=== PATIENT | male | born 1945 | race Caucasian/White ===

== ENCOUNTER 2020-06-27 14:02 | Observation (INO) ==
[2020-06-27] MEDS ORDERED: 0.9 % Sodium Chloride 1,000 ML IVC ONE (14:07)
[2020-06-27 15:34] LABS: Basophils % 0.2 %; Eosinophils # 0.1 K/mcL (0.0-0.6); Eosinophils % 0.7 %; Hematocrit 30.9 % (37.5-50.1); Hemoglobin 9.9 g/dL (12.9-16.9); Immature Granulocytes % 0.5 % (0-4); Lymphocytes # 1.3 K/mcL (0.6-4.6); Lymphocytes % 10.9 %; Mean Corpuscular Hemoglobin 30.4 pg (28.0-33.3); Mean Corpuscular Volume 94.8 fL (83.0-100.0); Mean Platelet Volume 10.5 fL (9.4-12.4); Monocytes % 7.7 %; Neutrophils # 9.8 K/mcL (1.6-8.9); Platelet Count 331 K/mcL (140-400); Red Blood Count 3.26 M/mcL (4.19-5.50); Red Cell Distribution Width 15.2 % (11.5-14.5); White Blood Count 12.3 K/mcL (4.3-11.1)
[2020-06-27 15:35] LABS: INR 1.6; Prothrombin Time 17.9 Seconds (9.4-12.1)
[2020-06-27 15:37] LABS: Activated Partial Thrombo Time 37.5 Seconds (26.0-36.0)
[2020-06-27 15:51] LABS: BUN/Creatinine Ratio 32 (6-26); Blood Urea Nitrogen 110 mg/dL (8-23); Calcium 9.9 mg/dL (8.6-10.3); Carbon Dioxide 15 mEq/L (23-29); Chloride 110 mEq/L (98-107); Glucose 158 mg/dL (70-105); Osmolality,Calculated 316 (280-300); Potassium 5.3 mEq/L (3.5-5.1); Sodium 134 mEq/L (136-145); Troponin I < 0.03 ng/mL (< 0.04); eGFR For African Americans 21 (> 60); eGFR For Non-African Americans 17 (> 60)
[2020-06-27] MEDS ORDERED: *HR* LORazepam 2 MG/ML VIAL IVP ONE (16:17)
[2020-06-27] MEDS ORDERED: Pantoprazole 40 MG VIAL IVP ONE (16:24)
[2020-06-27] MEDS ORDERED: D5% in Water 1,000 ML IVC PRN (18:15)
[2020-06-27] MEDS ORDERED: Dextrose Gel 15 GM/37.5 ML TUBE PO PRN ×2 (18:15)
[2020-06-27] MEDS ORDERED: *HR* Dextrose 50 % in Water (Vial) 50 ML VIAL IVP PRN (18:15)
[2020-06-27] MEDS ORDERED: Nitroglycerin 0.4 MG TAB.SUBL SL PRN (18:16)
[2020-06-27] MEDS ORDERED: Naloxone 0.4 MG/ML INJ IVP PRN (18:18)
[2020-06-27] MEDS ORDERED: Ondansetron 4 MG/2 ML VIAL IVP PRN (18:18)
[2020-06-27] MEDS: Insulin LISPRO 300 UNITS/3 ML VIAL SQ SCH (20:16)
[2020-06-27] MEDS: Pantoprazole 40 MG VIAL IVP SCH (20:31)
[2020-06-27] MEDS: 0.9 % Sodium Chloride 1,000 ML IVC SCH (20:31)
[2020-06-27 21:27] LABS: Hematocrit 28.1 % (37.5-50.1); Hemoglobin 8.9 g/dL (12.9-16.9)
[2020-06-27] MEDS: Budesonide/Formoterol 160/4.5 1 PUFF INH IH SCH (21:30)
[2020-06-27] MEDS: Ipratropium/Albuterol Neb 3 ML IH SCH (21:31)
[2020-06-27] MEDS ORDERED: Acetaminophen 325 MG TABLET PO ONE (22:03)
[2020-06-28] MEDS: Ipratropium/Albuterol Neb 3 ML IH SCH ×4 (03:25→21:53)
[2020-06-28 04:30] LABS: Basophils % 0.4 %; Eosinophils # 0.1 K/mcL (0.0-0.6); Hematocrit 29.1 % (37.5-50.1); Hemoglobin 9.4 g/dL (12.9-16.9); Immature Granulocytes % 0.4 % (0-4); Lymphocytes # 1.4 K/mcL (0.6-4.6); Lymphocytes % 19.6 %; Mean Corpuscular HGB Conc 32.3 g/dL (31.6-35.5); Mean Platelet Volume 10.2 fL (9.4-12.4); Monocytes # 0.8 K/mcL (0.0-1.3); Monocytes % 10.7 %; Neutrophils # 4.7 K/mcL (1.6-8.9); Platelet Count 255 K/mcL (140-400); Red Blood Count 3.03 M/mcL (4.19-5.50); Red Cell Distribution Width 15.2 % (11.5-14.5); Segmented Neutrophils % 66.9 %
[2020-06-28 04:49] LABS: Calcium 9.3 mg/dL (8.6-10.3); Potassium 4.3 mEq/L (3.5-5.1)
[2020-06-28] MEDS: 0.9 % Sodium Chloride 1,000 ML IVC SCH ×2 (05:09→18:25)
[2020-06-28] MEDS: Pantoprazole 40 MG VIAL IVP SCH ×2 (08:13→21:02)
[2020-06-28] MEDS: Insulin LISPRO 300 UNITS/3 ML VIAL SQ SCH ×4 (08:13→21:12)
[2020-06-28] MEDS: Budesonide/Formoterol 160/4.5 1 PUFF INH IH SCH ×2 (09:44→21:56)
[2020-06-28] MEDS ORDERED: Acetaminophen 325 MG TABLET PO PRN (12:04)
[2020-06-28 14:36] LABS: Hematocrit 28.3 % (37.5-50.1)
[2020-06-28] MEDS: PARoxetine 30 MG TABLET PO SCH (21:03)
[2020-06-29] MEDS: Ipratropium/Albuterol Neb 3 ML IH SCH ×4 (04:08→21:31)
[2020-06-29] MEDS: 0.9 % Sodium Chloride 1,000 ML IVC SCH ×2 (04:36→15:37)
[2020-06-29 07:48] LABS: Basophils % 0.5 %; Eosinophils # 0.1 K/mcL (0.0-0.6); Eosinophils % 1.5 %; Hematocrit 29.3 % (37.5-50.1); Hemoglobin 9.3 g/dL (12.9-16.9); Immature Granulocytes % 0.7 % (0-4); Lymphocytes # 1.2 K/mcL (0.6-4.6); Lymphocytes % 15.4 %; Mean Corpuscular HGB Conc 31.7 g/dL (31.6-35.5); Mean Corpuscular Hemoglobin 30.2 pg (28.0-33.3); Mean Corpuscular Volume 95.1 fL (83.0-100.0); Mean Platelet Volume 9.8 fL (9.4-12.4); Monocytes # 0.7 K/mcL (0.0-1.3); Monocytes % 9.2 %; Neutrophils # 5.5 K/mcL (1.6-8.9); Platelet Count 291 K/mcL (140-400); Red Blood Count 3.08 M/mcL (4.19-5.50); Red Cell Distribution Width 15.3 % (11.5-14.5); Segmented Neutrophils % 72.7 %; White Blood Count 7.5 K/mcL (4.3-11.1)
[2020-06-29 08:01] LABS: INR 1.1; Prothrombin Time 12.6 Seconds (9.4-12.1)
[2020-06-29 08:17] LABS: Calcium 8.8 mg/dL (8.6-10.3); Potassium 4.2 mEq/L (3.5-5.1)
[2020-06-29] MEDS: Insulin LISPRO 300 UNITS/3 ML VIAL SQ SCH ×4 (08:43→21:46)
[2020-06-29] MEDS: Budesonide/Formoterol 160/4.5 1 PUFF INH IH SCH ×2 (09:43→21:32)
[2020-06-29] MEDS: PARoxetine 30 MG TABLET PO SCH ×2 (10:19→21:45)
[2020-06-29] MEDS: Cyanocobalamin (B-12) 1,000 MCG TABLET PO SCH (10:19)
[2020-06-29] MEDS: Cholecalciferol (D-3) 1,000 UNIT (25MCG) TABLET PO SCH (10:19)
[2020-06-29] MEDS: Spironolactone 25 MG TABLET PO SCH (10:19)
[2020-06-29] MEDS: Pantoprazole 40 MG VIAL IVP SCH ×2 (10:20→21:44)
[2020-06-29 14:09] LABS: Calcium 8.3 mg/dL (8.6-10.3); Potassium 4.4 mEq/L (3.5-5.1)
[2020-06-30] MEDS: Ipratropium/Albuterol Neb 3 ML IH SCH ×3 (03:11→15:11)
[2020-06-30 05:32] LABS: White Blood Count 5.4 K/mcL (4.3-11.1)
[2020-06-30 05:33] LABS: Basophils % 0.6 %; Eosinophils # 0.1 K/mcL (0.0-0.6); Eosinophils % 2.4 %; Hematocrit 23.9 % (37.5-50.1); Hemoglobin 7.6 g/dL (12.9-16.9); Immature Granulocytes % 0.6 % (0-4); Lymphocytes # 0.9 K/mcL (0.6-4.6); Lymphocytes % 16.5 %; Mean Corpuscular HGB Conc 31.8 g/dL (31.6-35.5); Mean Corpuscular Volume 94.5 fL (83.0-100.0); Mean Platelet Volume 10.2 fL (9.4-12.4); Monocytes # 0.6 K/mcL (0.0-1.3); Monocytes % 11.1 %; Neutrophils # 3.7 K/mcL (1.6-8.9); Platelet Count 236 K/mcL (140-400); Red Blood Count 2.53 M/mcL (4.19-5.50); Red Cell Distribution Width 15.6 % (11.5-14.5); Segmented Neutrophils % 68.8 %
[2020-06-30 05:40] LABS: BUN/Creatinine Ratio 21 (6-26); Blood Urea Nitrogen 28 mg/dL (8-23); Calcium 8.2 mg/dL (8.6-10.3); Carbon Dioxide 16 mEq/L (23-29); Chloride 119 mEq/L (98-107); Glucose 200 mg/dL (70-105); Osmolality,Calculated 303 (280-300); Potassium 4.4 mEq/L (3.5-5.1); Sodium 141 mEq/L (136-145); eGFR For African Americans > 60 (> 60); eGFR For Non-African Americans 54 (> 60)
[2020-06-30] MEDS: Insulin LISPRO 300 UNITS/3 ML VIAL SQ SCH ×2 (08:09→11:59)
[2020-06-30] MEDS: Budesonide/Formoterol 160/4.5 1 PUFF INH IH SCH (10:20)
[2020-06-30 15:14] VITALS: BP 107/51
[2020-06-30 15:47] LABS: Hematocrit 27.4 % (37.5-50.1); Hemoglobin 8.7 g/dL (12.9-16.9)
[2020-06-30] MEDS: Cholecalciferol (D-3) 1,000 UNIT (25MCG) TABLET PO SCH (16:11)
[2020-06-30] MEDS: Cyanocobalamin (B-12) 1,000 MCG TABLET PO SCH (16:12)
[2020-06-30] MEDS: Spironolactone 25 MG TABLET PO SCH (16:12)
[2020-06-30] MEDS: Pantoprazole 40 MG VIAL IVP SCH (16:13)
[2020-06-30] MEDS: PARoxetine 30 MG TABLET PO SCH (16:13)
[2020-06-30] MEDS ORDERED: *HR* Propofol 200 MG/20 ML VIAL IVP ONE (18:20)
[2020-06-30] MEDS ORDERED: Lidocaine -MPF 2% 5 ML VIAL SQ ONE (18:20)
== END 2020-06-30 18:21 | disposition home health service (06) ==
LOC: EMEROOARM 14:02 → 3BNU 14:02 → SUATTDRO 18:17 → 3BNU 18:53
PROVIDERS: ADMIT Pharmacist; ATTEND Family Medicine
PROC: ENDOCBX (2020-06-30 18:35)